=== PATIENT | female | born 1995 | race Caucasian/White ===

== ENCOUNTER 2019-01-06 11:46 | Emergency (ER) | payer OTHER ==
[2019-01-06 11:56] VITALS: BP 146/89
--- NOTE | 2019-01-06 11:58 | Event Note ---
ED Screening Note Date of service: 01/06/19 Time: 11:54 ED Screening Note: This is a 23 y.o. F. that presents to the ER with anxiety. Patient states everything around her doesn't feel real and nauseous. She is seeing a psychiatrist who recently changed medications. Denies SI/HI. Current smoker PMH anxiety, depression, and hypoglycemia 12/08/2018 This initial assessment/diagnostic orders/clinical plan/treatment(s) is/are subject to change based on patients health status, clinical progression and re- assessment by fellow clinical providers in the ED. Further treatment and workup at subsequent clinical providers discretion. Patient/guardian urged not to elope from the ED as their condition may be serious if not clinically assessed and managed. Initial orders include: Labs
--- NOTE | 2019-01-06 12:56 | Emergency Department Report ---
ED Anxiety HPI - General Chief Complaint: Anxiety Stated Complaint: ANXIETY/FATIGUE/NAUSEA/HEADACHE Time Seen by Provider: 01/06/19 11:53 Source: patient Mode of arrival: Ambulatory - History of Present Illness Initial Comments: This is a 23-year-old female with a history of anxiety and depression who has been taking Effexor and clonazepam daily for the past year patient states she recently moved back here from [place]. Patient states that she has been out of her clonazepam for about 3 months and states that she went outside psychiatric Center with each replaced according lorazepam with Risperdal and has now replaced the Abilify. Patient states that his medications are making her drowsy and causing her to be really tired all the time. Patient states she does not feel like herself when she is taking his medications and does not take them anymore. Patient states that she will likely a referral to another psychiatrist and medication refill. She denies chest pain, shortness of breath, fever, suicidal ideation or homicidal ideation MD Complaint: anxiety Place: home Previous History of Same: Yes Severity: mild Quality: similar to prior episodes - Related Data Home Medications: Previous Rx's Medication Instructions Recorded Last Taken Type clonazePAM [KlonoPIN] 0.5 mg PO BID PRN #15 tab 01/06/19 Unknown Rx Allergies/Adverse Reactions: Allergies Allergy/AdvReac Type Severity Reaction Status Date / Time codeine Allergy Anaphylaxis Verified 01/06/19 11:51 shellfish derived Allergy Anaphylaxis Verified 01/06/19 11:51 ED Review of Systems ROS: Stated complaint: ANXIETY/FATIGUE/NAUSEA/HEADACHE Other details as noted in HPI Comment: All other systems reviewed and negative ED Past Medical Hx - Past Medical History Previous Medical History?: Yes Hx Psychiatric Treatment: Yes (anxiety, depression) Additional medical history: hypoglycemia - Surgical History Past Surgical History?: No - Social History Smoking Status: Current Every Day Smoker Substance Use Type: None - Medications Home Medications: Home Medications Medication Instructions Recorded Confirmed Last Taken Type clonazePAM [KlonoPIN] 0.5 mg PO BID PRN #15 tab 01/06/19 Unknown Rx ED Physical Exam - General Limitations: No Limitations General appearance: alert, in no apparent distress - Head Head exam: Present: atraumatic, normocephalic - Eye Eye exam: Present: normal appearance - ENT ENT exam: Present: mucous membranes moist - Neck Neck exam: Present: normal inspection - Respiratory Respiratory exam: Present: normal lung sounds bilaterally. Absent: respiratory distress, wheezes, rales - Cardiovascular Cardiovascular Exam: Present: regular rate, normal rhythm. Absent: systolic murmur, diastolic murmur, rubs, gallop - GI/Abdominal GI/Abdominal exam: Present: soft, normal bowel sounds. Absent: distended - Extremities Exam Extremities exam: Present: normal inspection, full ROM - Back Exam Back exam: Present: normal inspection, full ROM - Neurological Exam Neurological exam: Present: alert, oriented X3, normal gait - Psychiatric Psychiatric exam: Present: normal affect, normal mood - Skin Skin exam: Present: warm, dry, intact, normal color. Absent: rash ED Course Vital Signs 01/06/19 11:54 Temperature 98 F Pulse Rate 79 Respiratory 22 Rate Blood Pressure 146/89 [Right] O2 Sat by Pulse 98 Oximetry ED Medical Decision Making - Medical Decision Making 23-year-old female presents with a history of anxiety and depression for medication refill Urine drug screen negative. Discussed the patient follow-up with psychiatry as needed. Discussed with patient that I will be given her referrals to several psychiatric clinic should follow up with. Patient is in no acute distress or respiratory distress. Patient understands instructions. Critical care attestation.: If time is entered above; I have spent that time in minutes in the direct care of this critically ill patient, excluding procedure time. ED Disposition Clinical Impression: Anxiety Disposition: DC-01 TO HOME OR SELFCARE Is pt being admited?: No Does the pt Need Aspirin: No Condition: Stable Instructions: Anxiety (ED) Additional Instructions: Make sure to follow up with the psychiatric as discussed. Take your medications as you've been prescribed. If you have any worsening symptoms or develop new symptoms please return to ED immediately. Prescriptions: clonazePAM [KlonoPIN] 0.5 mg PO BID PRN #15 tab PRN Reason: Anxiety Referrals: ALISHA DUNCAN MD [Primary Care Provider] - 3-5 Days [facility] [Outside] - 3-5 Days [facility] [Outside] - 3-5 Days [facility] [Outside] - 3-5 Days [facility] [Outside] - 3-5 Days Forms: Accompanied Note, Work/School Release Form(ED) Time of Disposition: 13:00
[2019-01-06 13:04] LABS: Amphetamine Screen,Urine PRESUMPTIVE NEGATIVE; Benzodiazepines Screen,Urine PRESUMPTIVE NEGATIVE; Cannabinoid Screen,Urine PRESUMPTIVE NEGATIVE; Cocaine Screen,Urine PRESUMPTIVE NEGATIVE; Methadone Screen,Urine PRESUMPTIVE NEGATIVE; Opiate Screen,Urine PRESUMPTIVE NEGATIVE
[2019-01-06 13:14] LABS: Bacteria,Urine 1+ /HPF (Negative); Bilirubin,Urine NEG (Negative); Blood,Urine NEG (Negative); Color,Urine Yellow (Yellow); Mucus,Urine 2+ /HPF; Protein,Urine <15 mg/dL mg/dL (Negative); WBC,Urine < 1.0 /HPF (0.0-6.0)
== END 2019-01-06 13:40 | disposition home or self-care (01) ==
LOC: ED 11:46
DX: F41.9 Anxiety disorder, unspecified (principal); F32.9 Major depressive disorder, single episode, unspecified; E16.2 Hypoglycemia, unspecified; F17.200 Nicotine dependence, unspecified, uncomplicated; Z76.0 Encounter for issue of repeat prescription; Z79.899 Other long term (current) drug therapy; Z88.5 Allergy status to narcotic agent; Z91.013 Allergy to seafood
CPT/HCPCS: 80307; 81001

== ENCOUNTER 2019-03-15 08:03 | Emergency (ER) | payer SELFPAY ==
[2019-03-15 08:18] VITALS: BP 124/76
--- NOTE | 2019-03-15 08:34 | Emergency Department Report ---
ED Psych HPI - General Chief Complaint: Anxiety Stated Complaint: WITHDRAWAL FROM ANTIDPRESANTS Time Seen by Provider: 03/15/19 08:29 Source: patient Mode of arrival: Ambulatory - History of Present Illness Initial Comments: CC: "I feel shaky" HPI: Ms. Cash is a 23 yo female with past medical history of major depressive disorder and generalized anxiety disorder who requests refill of medications Effexor and Clonazepm. She is new to [place] from [place], [place]. she was unable to afford [id number] cost to visit with a mental health specialist. She was discharged to $200 per visit. She has been out medications Effexor and clonazepam for and the past 2 days. She has been to the ER on previous occasion for refill of these medications. She denies suicidal or homicidal ideation. Complaint: other (feels shaky without medication) -: Gradual, days(s) (2) Associated Psychiatric Symptoms: none History of same: Yes Quality: constant Improves With: none Worsens With: none Context: not taking psychiatric Associated Symptoms: denies other symptoms Treatments Prior to Arrival: none - Related Data Previous Rx's Medication Instructions Recorded Last Taken Type clonazePAM [KlonoPIN] 0.5 mg PO BID PRN #15 tab 01/06/19 Unknown Rx Venlafaxine HCl [Effexor Xr] 150 mg PO DAILY 14 Days #14 03/15/19 Unknown Rx cap.er.24h Allergies Allergy/AdvReac Type Severity Reaction Status Date / Time codeine Allergy Anaphylaxis Verified 01/06/19 11:51 shellfish derived Allergy Anaphylaxis Verified 01/06/19 11:51 ED Review of Systems ROS: Stated complaint: WITHDRAWAL FROM ANTIDPRESANTS Other details as noted in HPI Comment: All other systems reviewed and negative Constitutional: denies: fever, malaise Respiratory: denies: cough Cardiovascular: denies: chest pain Gastrointestinal: denies: abdominal pain, vomiting ED Past Medical Hx - Past Medical History Previous Medical History?: Yes Hx Psychiatric Treatment: Yes (anxiety, depression) Additional medical history: hypoglycemia - Surgical History Past Surgical History?: No - Family History Family history: other (mother commited suicide age 42) - Social History Smoking Status: Current Every Day Smoker Substance Use Type: None - Medications Home Medications: Home Medications Medication Instructions Recorded Confirmed Last Taken Type clonazePAM [KlonoPIN] 0.5 mg PO BID PRN #15 tab 01/06/19 Unknown Rx Venlafaxine HCl [Effexor Xr] 150 mg PO DAILY 14 Days #14 03/15/19 Unknown Rx cap.er.24h ED Physical Exam - General Limitations: No Limitations General appearance: alert, in no apparent distress - Head Head exam: Present: atraumatic, normocephalic - Eye Eye exam: Present: normal appearance - ENT ENT exam: Present: mucous membranes moist - Neck Neck exam: Present: normal inspection, full ROM - Respiratory Respiratory exam: Present: normal lung sounds bilaterally. Absent: respiratory distress, wheezes, rales, rhonchi - Cardiovascular Cardiovascular Exam: Present: regular rate, normal rhythm, normal heart sounds. Absent: systolic murmur, diastolic murmur, rubs, gallop - GI/Abdominal GI/Abdominal exam: Present: soft, normal bowel sounds. Absent: distended, tenderness, guarding, rebound - Extremities Exam Extremities exam: Present: normal inspection - Back Exam Back exam: Present: normal inspection - Neurological Exam Neurological exam: Present: alert, oriented X3 - Psychiatric Psychiatric exam: Present: normal affect, normal mood - Skin Skin exam: Present: warm, dry, intact, normal color. Absent: rash ED Course Vital Signs 03/15/19 08:17 Temperature 97.9 F Pulse Rate 82 Respiratory 16 Rate Blood Pressure 124/76 O2 Sat by Pulse 96 Oximetry ED Medical Decision Making - Medical Decision Making Ms. Cash requests refill of medications Clonazepam and Effexor. 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 I explained that with the addiction and abuse potential of Clonazepam, this drug is inappropriate to be prescribed from the ER without medical supervision. I provided 14 day prescription for Effexor. She explained that she received a prescription for Clonazepam 2 months ago on previous visit. I explained that repeated requests for benzodiazepines from the ER necessitates evaluation by a mental health specialist. I have referred her to the [facility]. Ms. Cash is calm articulate insightful. She does not have suicidal homicidal ideation. Denies hallucinations. She does not appear to be at risk for self-harm at this time. Critical care attestation.: If time is entered above; I have spent that time in minutes in the direct care of this critically ill patient, excluding procedure time. ED Disposition Clinical Impression: MDD (major depressive disorder), BREEZY (generalized anxiety disorder), Medication refill Disposition: DC-01 TO HOME OR SELFCARE Is pt being admited?: No Does the pt Need Aspirin: No Condition: Stable Additional Instructions: Please make an appointment with a specialist at the [facility]. Please return to the ER for any concerns or new symptoms. Prescriptions: Venlafaxine HCl [Effexor Xr] 150 mg PO DAILY 14 Days #14 cap.er.24h Referrals: [facility] [Outside] - 3-5 Days Forms: Work/School Release Form(ED)
== END 2019-03-15 09:27 | disposition home or self-care (01) ==
LOC: ED 08:03
DX: F32.9 Major depressive disorder, single episode, unspecified (principal); F41.9 Anxiety disorder, unspecified; E16.2 Hypoglycemia, unspecified; F17.200 Nicotine dependence, unspecified, uncomplicated; Z76.0 Encounter for issue of repeat prescription; Z79.899 Other long term (current) drug therapy; Z88.5 Allergy status to narcotic agent; Z91.013 Allergy to seafood

== ENCOUNTER 2019-05-29 01:15 | Emergency (ER) | payer SELFPAY ==
[2019-05-29 05:15] LABS: Basophils % (Auto) 0.3 % (0.0-1.8); Eosinophils % (Auto) 0.3 % (0.0-4.3); Hematocrit 42.5 % (30.3-42.9); Hemoglobin 13.9 gm/dl (10.1-14.3); Lymphocytes # (Auto) 1.2 K/mm3 (1.2-5.4); Lymphocytes % (Auto) 12.9 % (13.4-35.0); Mean Corpuscular HGB Conc 33 % (30-34); Mean Corpuscular Volume 90 fl (79-97); Monocytes # (Auto) 0.8 K/mm3 (0.0-0.8); Platelet Count 272 K/mm3 (140-440); Red Blood Count 4.74 M/mm3 (3.65-5.03); Red Cell Distribution Width 13.4 % (13.2-15.2)
[2019-05-29 06:01] LABS: Bacteria,Urine 2+ /HPF (Negative); Mucus,Urine FEW /HPF
[2019-05-29 06:32] LABS: Bilirubin,Urine NEG (Negative); Blood,Urine LG (Negative); Color,Urine Amber (Yellow)
[2019-05-29 07:58] VITALS: BP 131/75
--- NOTE | 2019-05-29 08:13 | Emergency Department Report ---
ED Abdominal Pain HPI - General Chief Complaint: Abdominal Pain Stated Complaint: ABDOMINAL PAIN Time Seen by Provider: 05/29/19 08:02 Source: patient Mode of arrival: Stretcher Limitations: No Limitations - History of Present Illness Initial Comments: Brynn is a 23 yo female with hx of depression and anxiety who presents with epigastric pain radiating to her back. She is worried about having a stomach ulcer. She takes a lot of Advil during her menstrual cycle. She is currently menstruationg. No fever. No vomiting. Sharp burning pain mild to moderate in severity. MD Complaint: abdominal pain -: Gradual, days(s) (2) Location: epigastric Radiation: back Severity: moderate Quality: aching, sharp Consistency: constant Improves With: nothing Worsens With: nothing Associated Symptoms: denies other symptoms - Related Data Previous Rx's Medication Instructions Recorded Last Taken Type clonazePAM [KlonoPIN] 0.5 mg PO BID PRN #15 tab 01/06/19 Unknown Rx Venlafaxine HCl [Effexor Xr] 150 mg PO DAILY 14 Days #14 03/15/19 Unknown Rx cap.er.24h Famotidine [Pepcid] 20 mg PO BID 30 Days #60 tablet 05/29/19 Unknown Rx Allergies Allergy/AdvReac Type Severity Reaction Status Date / Time codeine Allergy Anaphylaxis Verified 01/06/19 11:51 shellfish derived Allergy Anaphylaxis Verified 01/06/19 11:51 ED Review of Systems ROS: Stated complaint: ABDOMINAL PAIN Other details as noted in HPI Comment: All other systems reviewed and negative Constitutional: denies: fever, malaise Respiratory: denies: cough Gastrointestinal: abdominal pain. denies: nausea, vomiting, diarrhea ED Past Medical Hx - Past Medical History Previous Medical History?: Yes Hx Psychiatric Treatment: Yes (anxiety, depression) Additional medical history: hypoglycemia - Surgical History Past Surgical History?: No - Social History Smoking Status: Current Every Day Smoker Substance Use Type: Alcohol - Medications Home Medications: Home Medications Medication Instructions Recorded Confirmed Last Taken Type clonazePAM [KlonoPIN] 0.5 mg PO BID PRN #15 tab 01/06/19 Unknown Rx Venlafaxine HCl [Effexor Xr] 150 mg PO DAILY 14 Days #14 03/15/19 Unknown Rx cap.er.24h Famotidine [Pepcid] 20 mg PO BID 30 Days #60 tablet 05/29/19 Unknown Rx ED Physical Exam - General Limitations: No Limitations General appearance: alert, in no apparent distress, other (appears well appears comfortable) - Head Head exam: Present: atraumatic, normocephalic - Eye Eye exam: Present: normal appearance - ENT ENT exam: Present: mucous membranes moist - Neck Neck exam: Present: normal inspection, full ROM - Respiratory Respiratory exam: Present: normal lung sounds bilaterally. Absent: respiratory distress, wheezes, rales, rhonchi - Cardiovascular Cardiovascular Exam: Present: regular rate, normal rhythm, normal heart sounds. Absent: systolic murmur, diastolic murmur, rubs, gallop - GI/Abdominal GI/Abdominal exam: Present: soft, normal bowel sounds. Absent: distended, tenderness, guarding, rebound - Extremities Exam Extremities exam: Present: normal inspection - Back Exam Back exam: Present: normal inspection - Neurological Exam Neurological exam: Present: alert, oriented X3 - Psychiatric Psychiatric exam: Present: normal affect, normal mood - Skin Skin exam: Present: warm, dry, intact, normal color. Absent: rash ED Course Vital Signs 05/29/19 05/29/19 05/29/19 01:57 03:43 07:56 Temperature 97.9 F 97.9 F 98.0 F Pulse Rate 89 80 67 Respiratory 18 18 20 Rate Blood Pressure 125/91 125/91 Blood Pressure 131/75 [Right] O2 Sat by Pulse 99 98 98 Oximetry ED Medical Decision Making - Lab Data Result diagrams: 05/29/19 03:57 Laboratory Results - last 24 hr 05/29/19 05/29/19 05/29/19 03:57 03:57 04:16 WBC 9.4 RBC 4.74 Hgb 13.9 Hct 42.5 MCV 90 MCH 29 MCHC 33 RDW 13.4 Plt Count 272 Lymph % (Auto) 12.9 L [place] % (Auto) 8.0 H Eos % (Auto) 0.3 Baso % (Auto) 0.3 Lymph # 1.2 [place] # 0.8 Eos # 0.0 Baso # 0.0 Seg Neutrophils % 78.5 H Seg Neutrophils # 7.4 HCG, Qual Negative Urine Color [place] Urine Turbidity Cloudy Urine pH 6.0 Ur Specific [place] 1.017 Urine Protein 30 mg/dl Urine Glucose (UA) Neg Urine Ketones Neg Urine Blood Lg Urine Nitrite Neg Ur Reducing Substances Not Reportable Urine Bilirubin Neg Urine Ictotest Not Reportable Urine Urobilinogen 4.0 Ur Leukocyte Esterase Neg Urine WBC (Auto) 0.0 Urine RBC (Auto) 59.0 U Epithel Cells (Auto) 2.0 Urine Bacteria (Auto) 2+ Urine Mucus Few Urine Yeast (Budding) 3+ - Medical Decision Making Brynn is a 22-year-old female with history of anxiety and depression presents with epigastric pain radiating to the back. Differential diagnosis includes peptic ulcer disease, acute pancreatitis, NSAID- induced gastritis, biliary colic. She appears well without peritoneal signs. I recommended avoidance of NSAIDs. I recommended Tylenol to address dysmenorrhea. I prescribed famotidine twice a day Critical care attestation.: If time is entered above; I have spent that time in minutes in the direct care of this critically ill patient, excluding procedure time. ED Disposition Clinical Impression: Gastritis Disposition: DC-01 TO HOME OR SELFCARE Is pt being admited?: No Does the pt Need Aspirin: No Condition: Stable Instructions: Abdominal Pain (ED), Gastritis (ED) Prescriptions: Famotidine [Pepcid] 20 mg PO BID 30 Days #60 tablet Referrals: PRIMARY CARE, [Primary Care Provider] - 3-5 Days Forms: Work/School Release Form(ED)
[2019-05-29] MEDS ORDERED: HYDROcodone/ACETAMINOPHEN 5-325 MG TAB PO ONE (08:28)
[2019-05-29] MEDS ORDERED: ALUM-MAG HYDROXIDE-SIMETHICONE 200-200-20MG/5ML ORAL LIQD 30 ML PO ONE (08:28)
== END 2019-05-29 08:48 | disposition home or self-care (01) ==
LOC: ED 01:15
DX: K29.70 Gastritis, unspecified, without bleeding (principal); F32.9 Major depressive disorder, single episode, unspecified; F17.200 Nicotine dependence, unspecified, uncomplicated; F41.9 Anxiety disorder, unspecified; Z88.5 Allergy status to narcotic agent; Z91.013 Allergy to seafood
CPT/HCPCS: 36415; 81001; 84703; 85025